=== PATIENT | male | born 1945 | race Caucasian/White ===

== ENCOUNTER → 2016-05-17 | Outpatient (CLI) | payer OTHER ==
[~2016-05-17] MED LIST: ASCA500 PO; ASPCH81X PO; BICA50TA2 PO; CALC600T9 PO; CHOL100027 PO; LSN/10125 PO; MULT-506 PO; OMEGCAP2 PO; SERT1TAB71 PO; SIMV40TA4 PO; ZNTT/150 PO
== END | disposition home or self-care (01) ==
LOC: C.LAB 06:37
PROVIDERS: ATTEND Specialist
DX: C61 Malignant neoplasm of prostate (principal)

== ENCOUNTER → 2016-11-29 | Outpatient (CLI) | payer OTHER ==
[2016-11-29 09:43] LABS: BLOOD UREA NITROGEN 19 mg/dl (7-18); BUN/CREATININE RATIO 20.4 (10-20); CALCIUM 8.9 mg/dl (8.5-10.1); CARBON DIOXIDE 28 mmol/L (21-32); CHLORIDE 110 mmol/L (98-107); CREATININE 0.95 mg/dl (0.60-1.40); GLUCOSE 93 mg/dl (70-99); POTASSIUM 3.9 mmol/L (3.5-5.1); SODIUM 143 mmol/L (136-145)
[2016-11-29 09:46] LABS: CHOLESTEROL 188 mg/dl (0-200); CHOLESTEROL/HDL RATIO 3.3; HDL CHOLESTEROL 57 mg/dl; LDL CHOLESTEROL CALCULATED 95 mg/dl; TRIGLYCERIDES 181 mg/dl (0-150); VERY LOW DENSITY LIPOPROT CALC 36 mg/dl
== END | disposition home or self-care (01) ==
LOC: C.LAB 07:00
PROVIDERS: ATTEND Family Medicine
DX: I10 Essential (primary) hypertension (principal); E78.5 Hyperlipidemia, unspecified; C61 Malignant neoplasm of prostate

== ENCOUNTER → 2016-12-19 | Outpatient (CLI) | payer OTHER ==
[2016-12-19 08:12] LABS: HEMATOCRIT 40.5 % (42-52); MEAN CORPUSCULAR HEMOGLOBIN 31.6 pg (25-34); MEAN CORPUSCULAR HGB CONC 35.6 g/dl (32-36); MEAN PLATELET VOLUME 9.7 fL (7.4-10.4); PLATELET COUNT 216 K/uL (130-400); RED BLOOD COUNT 4.55 M/uL (4.7-6.1); WHITE BLOOD COUNT 7.71 K/uL (4.8-10.8)
[2016-12-19 08:45] LABS: ALT/SGPT 21 U/L (12-78); BLOOD UREA NITROGEN 16 mg/dl (7-18); BUN/CREATININE RATIO 20.4 (10-20); CALCIUM 8.7 mg/dl (8.5-10.1); CARBON DIOXIDE 28 mmol/L (21-32); CHLORIDE 109 mmol/L (98-107); CREATININE 0.79 mg/dl (0.60-1.40); GLUCOSE 97 mg/dl (70-99); POTASSIUM 3.8 mmol/L (3.5-5.1); SODIUM 142 mmol/L (136-145)
[2016-12-19 08:50] LABS: ALKALINE PHOSPHATASE 55 U/L (45-117); AST/SGOT 12 U/L (15-37)
== END | disposition home or self-care (01) ==
LOC: C.LAB 07:16
PROVIDERS: ATTEND Internal Medicine Hematology & Oncology
DX: C61 Malignant neoplasm of prostate (principal)

== ENCOUNTER → 2016-12-20 | Outpatient (CLI) | payer OTHER ==
--- NOTE | 2016-12-20 14:01 | DIAGNOSTIC IMAGING REPORT ---
CT SCAN OF THE ABDOMEN AND PELVIS WITHOUT CONTRAST CLINICAL HISTORY: Prostate carcinoma COMPARISON STUDY: November 2008 TECHNIQUE: CT scan of the abdomen and pelvis was performed from the lung bases to the proximal femurs. Images are reviewed in the axial, sagittal, and coronal planes. IV contrast was not administered for this examination. A dose lowering technique was utilized adhering to the principles of ALARA. CT DOSE: FINDINGS: Lower chest: There is a small hiatal hernia. Liver: There is a 12 mm hypodensity within the left hepatic lobe anteriorly, likely representing a cyst. Gallbladder: Surgically absent Spleen: Normal in size and attenuation. Pancreas: Unremarkable. Adrenal glands: Unremarkable. Kidneys: No renal, ureteral, or bladder calculi are visualized. There is a 37 mm lower pole right renal cyst. This is 22 mm mid pole left renal cyst. Bowel: There are no transition zones indicate bowel obstruction. There is colonic diverticulosis. There are no acute peridiverticular inflammatory changes. There is no evidence of acute appendicitis. Peritoneum: There is a small right-sided femoral hernia containing a small portion of small bowel. No obstructive changes are evident. Vasculature: The abdominal aorta is normal in course and caliber. Adenopathy: There are mildly prominent aortocaval lymph nodes, including a 1 cm node which is at the upper limits of normal in size. Pelvic viscera: Multiple prostate radiation therapy seeds are visualized. Skeletal structures: No destructive osseous lesions are seen. IMPRESSION: 1. 1 cm aortocaval lymph node which is at the upper limits of normal in size 2. Very small right-sided femoral hernia 3. No evidence of bowel obstruction. No evidence of free air. No acute inflammatory changes Electronically signed by: Sachin Sharif M.D. 12/20/2016 1:59 PM Dictated Date/Time: 12/20/2016 1:50 PM
--- NOTE | 2016-12-20 14:14 | DIAGNOSTIC IMAGING REPORT ---
(CHEST) THORAX WITHOUT CT DOSE: 1255.34 mGy.cm HISTORY: PROSTATE CA, R/O METS TECHNIQUE: Multiaxial CT images of the chest were performed without contrast. A dose lowering technique was utilized adhering to the principles of ALARA. COMPARISON: Chest CT 05/04/2015. FINDINGS: No pleural effusions. No pneumothorax. The central airways are patent. Mild emphysema. No focal lung consolidations. No suspicious pulmonary nodules. A few linear densities at the right lung base favor subsegmental atelectasis or scarring. No suspicious lytic or blastic osseous lesions. No mediastinal or hilar lymphadenopathy. Small hiatus hernia. Tiny gastric diverticulum. The visualized spleen and adrenal glands are unremarkable. A 1.3 cm hypodense lesion within the left hepatic dome is incompletely characterize on this noncontrast study but favors a cyst. Normal caliber thoracic aorta. IMPRESSION: No evidence for metastatic disease within the chest. Electronically signed by: Nba Seth M.D. 12/20/2016 2:13 PM Dictated Date/Time: 12/20/2016 2:08 PM
--- NOTE | 2016-12-20 14:29 | DIAGNOSTIC IMAGING REPORT ---
BONE SCAN WHOLE BODY CLINICAL HISTORY: Prostate carcinoma. COMPARISON STUDY: Bone scan dated 04/04/2009, chest CT dated 12/20/2016 FINDINGS: The patient was injected with 22 mCi of technetium 99m MDP. Three-hour delayed whole body images were acquired. There is a stable focus of increased activity involving the left eighth costochondral junction. There is a second more subtle focus of increased activity involving the left fifth costosternal junction. These areas are unlikely to be on a neoplastic basis. There are foci of increased activity involving the medial joint compartment of each knee, likely on a degenerative basis. There is a stable focus of increased activity within the left shoulder likely degenerative. There are no foci of increased activity viewed as suspicious for skeletal metastasis. IMPRESSION: No scintigraphic evidence of skeletal metastasis. Electronically signed by: Sachin Sharif M.D. 12/20/2016 2:27 PM Dictated Date/Time: 12/20/2016 2:24 PM
== END | disposition home or self-care (01) ==
LOC: C.NUCL 10:42
PROVIDERS: ATTEND Internal Medicine Hematology & Oncology
DX: C61 Malignant neoplasm of prostate (principal)

== ENCOUNTER → 2017-03-14 | Outpatient (CLI) | payer OTHER | END | disposition home or self-care (01) | LOC: C.LAB 06:37 | PROVIDERS: ATTEND Internal Medicine Hematology & Oncology | DX: C61 Malignant neoplasm of prostate (principal) ==

== ENCOUNTER 2017-07-29 07:58 | Inpatient (IN) | payer OTHER ==
[~2017-07-29] VITALS: Ht 180.3 cm; Wt 92.4 kg
[~2017-07-29 07:58] MED LIST changes: +RANI150T85 PO; -ZNTT/150 PO
[2017-07-29] MEDS ORDERED: ABIR1TAB PO (08:27)
[2017-07-29] MEDS ORDERED: ZLDI (08:27)
[2017-07-29] MEDS ORDERED: SERT-234 PO (08:27)
[2017-07-29 08:44] LABS: BASO % 0.2 %; BASO ABS # 0.02 K/uL (0-0.2); EOS % 1.2 %; EOS ABS # 0.14 K/uL (0-0.5); HEMOGLOBIN 13.6 g/dL (14.0-18.0); IG# 0.04 K/uL (0.00-0.02); LYMPH % 8.7 %; LYMPH ABS # 1.03 K/uL (1.2-3.4); MEAN CELL VOLUME 89.8 fL (80-100); MEAN CORPUSCULAR HEMOGLOBIN 32.2 pg (25-34); MEAN CORPUSCULAR HGB CONC 35.8 g/dl (32-36); MEAN PLATELET VOLUME 9.9 fL (7.4-10.4); MONO % 8.1 %; MONO ABS # 0.96 K/uL (0.11-0.59); NEUT % 81.5 %; NEUT ABS # 9.59 K/uL (1.4-6.5); PLATELET COUNT 196 K/uL (130-400); RED CELL DISTRIBUTION WIDTH CV 12.9 % (11.5-14.5); RED CELL DISTRIBUTION WIDTH SD 42.1 fL (36.4-46.3); WHITE BLOOD COUNT 11.78 K/uL (4.8-10.8)
--- NOTE | 2017-07-29 09:02 | DIAGNOSTIC IMAGING REPORT ---
CHEST ONE VIEW PORTABLE CLINICAL HISTORY: Chest pain. COMPARISON STUDY: Chest CT December 20, 2016. FINDINGS: Lung volumes are normal. No pneumothorax or pleural effusion is noted. Mild left lower lung opacity is noted. There is no evidence for pulmonary edema. Underlying emphysema is present. Cardiomediastinal silhouette is stable. IMPRESSION: Linear left basilar opacity which has developed since previous exam. The configuration favors atelectasis however pneumonia could appear similar. Radiographic follow up is recommended. Electronically signed by: Bipin Berman M.D. 07/29/2017 9:00 AM Dictated Date/Time: 07/29/2017 8:59 AM
[2017-07-29 09:04] LABS: ALBUMIN 2.8 gm/dl (3.4-5.0); ALT/SGPT 15 U/L (12-78); AST/SGOT 16 U/L (15-37); BLOOD UREA NITROGEN 18 mg/dl (7-18); CALCIUM 8.6 mg/dl (8.5-10.1); CARBON DIOXIDE 23 mmol/L (21-32); CREATININE 0.84 mg/dl (0.60-1.40); GLUCOSE 116 mg/dl (70-99); LIPASE 73 U/L (73-393); POTASSIUM 2.9 mmol/L (3.5-5.1); SODIUM 138 mmol/L (136-145)
[2017-07-29 09:09] LABS: ALKALINE PHOSPHATASE 56 U/L (45-117); CKMB 2.9 ng/ml (0.5-3.6); TOTAL PROTEIN 6.9 gm/dl (6.4-8.2)
[2017-07-29] MEDS ORDERED: OPTIRAY 320 IV PRN (10:00)
--- NOTE | 2017-07-29 11:11 | DIAGNOSTIC IMAGING REPORT ---
CT ANGIOGRAM OF THE CHEST CLINICAL HISTORY: Left basilar consolidation. Elevated d-dimer. Atypical chest pain. COMPARISON STUDY: Chest x-ray dated 07/29/2017. Chest CT scans dated 12/20/2016 and 05/04/2015 TECHNIQUE: Following the IV administration of 92 cc of Optiray 320, CT angiogram of the chest was performed from the upper abdomen to the thoracic inlet utilizing the pulmonary embolus protocol. Images are reviewed in the axial, sagittal, and coronal planes. 3-D MIPS images are created and assessed. IV contrast was administered without complication. A dose lowering technique was utilized adhering to the principles of ALARA. The examination is modestly degraded by motion artifact. CT DOSE: 465.73 mGy.cm FINDINGS: Thyroid: Imaged portions of the thyroid gland are normal in size and attenuation. A subcentimeter low-attenuation nodule is noted in the right lobe. Thoracic aorta: There is atherosclerotic calcification of the thoracic aorta, which is normal in caliber and demonstrates standard 3-vessel arch anatomy. No dissection is seen. Pulmonary vasculature: The main pulmonary arteries are dilated suggesting pulmonary artery hypertension. There is a filling defect within the right lower lobe pulmonary artery. Filling defects are also seen within segmental and subsegmental branches of the right lower lobe, as well as segmental and subsegmental branches of the right middle lobe, the left lower lobe and the lingular pulmonary arteries. These are consistent with bilateral pulmonary emboli. Heart: The heart is enlarged and there is trace pericardial effusion. Lungs and pleural spaces: Moderate emphysema is noted. There are trace pleural effusions, left larger than right with associated bibasilar consolidation. The trachea and central airways are clear. Mediastinum: There is no mediastinal lymphadenopathy. Apryl: Clear. Axillae: There is no axillary lymphadenopathy. Upper abdomen: A small hiatal hernia is identified. Cholecystectomy clips are noted. A small gastric diverticulum is seen image #[id number]. Skeletal structures: The skeletal structures are osteopenic. There is an 8 mm sclerotic lesion identified in the body of T1 seen on image #[id number]. This is new from prior examinations. No additional osteolytic or blastic lesion is seen in. IMPRESSION: 1. Bilateral pulmonary emboli as detailed above. 2. Cardiomegaly and emphysema. 3. There are trace pleural effusions with bibasilar consolidation. This could represent atelectasis, an infectious/inflammatory pneumonitis, or possibly pulmonary infarcts given bilateral lower lobe pulmonary emboli. 4. There is an 8 mm sclerotic lesion identified in the body of T1. This is new from prior examinations and although pathologically indeterminant is concerning for an osteoblastic metastasis. Given the patient's gender, prostate cancer is a strong differential consideration. Correlation with serum PSA levels is recommended. 5. No additional osteoblastic lesions are identified. 6. Additional findings as above. Electronically signed by: De Caro M.D. 07/29/2017 11:10 AM Dictated Date/Time: 07/29/2017 11:00 AM
[2017-07-29 11:44] LABS: INR 1.1 (0.9-1.1); PTT PATIENT 29.4 SECONDS (21.0-31.0)
[2017-07-29] MEDS ORDERED: HEPARIN IV BOLUS 4,000 UNIT in SYRINGE 0 ML IV ONE (11:45)
[2017-07-29] MEDS ORDERED: HEPARIN SOD 5000 UNIT/0.5 ML CARP ONE (11:45)
[2017-07-29] MEDS: HEPARIN 25,000 UNIT/500ML D5W 500 ML IV SCH ×2 (11:56→18:58)
[2017-07-29] MEDS ORDERED: ZOLPIDEM TARTRATE 5 MG TAB PO PRN (12:45)
[2017-07-29] MEDS ORDERED: MoRPHine SULFATE 2 MG/ML CARP IV PRN (12:45)
[2017-07-29] MEDS ORDERED: ACETAMINOPHEN 325 MG TAB PO PRN (12:45)
[2017-07-29] MEDS ORDERED: ONDANSETRON INJ 2 MG/ML 2 ML VIAL IV PRN (12:45)
[2017-07-29] MEDS ORDERED: POLYETHYLENE (MIRALAX) 17 GM PACK PO PRN (12:45)
[2017-07-29] MEDS ORDERED: ALUMINUM/MAGNESIUM/SIMETH (MAALOX MAX) 30 ML UDC PO PRN (12:45)
[2017-07-29] MEDS ORDERED: MAGNESIUM HYDROXIDE SUSP 30 ML UDC PO PRN (12:45)
--- NOTE | 2017-07-29 12:57 | History and Physical ---
History & Physical Date & Time of Service: Jul 29, 2017 at 12:51 Chief Complaint: CHEST Primary Care Physician: No Doctor, Assigned History of Present Illness Source: patient, hospital records 72 y/o M Hx HTN, HPL, prostate CA - active. Pt presents with acute onset BL pleuritic CP - lower lateral chest. He denies SOB, although he states that he has trouble taking a deep breath. He denies fevers, n/v, dysuria. He had a viral-like illness earlier in the week which lead to him being more sedentary than usual. A CTA revealed BL lower lobe pulmonary emboli. 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 on current imaging - Brachytherapy 2006 - currently treated with Zoladex 4) GERD 5) Smoker Surgical: 1) Cholecystectomy 2) Cataracts Family History Cancer Social History Smoking Status: Current Every Day Smoker Marital Status: Occupational Status: retired Immunizations History of Influenza Vaccine: Unknown Allergies Coded Allergies: No Known Allergies (Unverified , 05/03/15) Home Medications Scheduled Abiraterone Acetate (Zytiga), 1,000 MG PO DAILY Ascorbic Acid (Vitamin C), 500 MG PO DAILY Aspirin (Aspirin Chewable), 81 MG PO DAILY Calcium Carbonate-Vitamin D (Calcium + D), 1 TAB PO DAILY Cholecalciferol (Vitamin D 1000 Unit), 1,000 INTER.UNIT PO DAILY Hctz/Lisinopril (Lisinopril/Hctz 10/12.5 Mg), 1 TAB PO DAILY Multivitamin (Multivitamin), 1 TAB PO DAILY Ettrick-3 Fatty Acids (Fish Oil), 1 CAP PO DAILY Ranitidine (Zantac), Unknown Dose PO DAILY Sertraline (Zoloft), 100 MG PO DAILY Simvastatin (Zocor), 40 MG PO QPM Miscellaneous Medications Goserelin Acetate (Zoladex) Review of Systems Constitutional: No fever, No chills, No sweats Eyes: No worsening of vision ENT: No hearing loss, No unusual epistaxis, No nasal symptoms Respiratory: + shortness of breath, + dyspnea on exertion, + dyspnea at rest, No cough, No sputum, No wheezing Cardiovascular: + chest pain (pleuritic, BL) Abdomen: No pain, No nausea, No vomiting Musculoskeletal: No joint pain Genitourinary - Male: No hematuria, No dysuria Neurologic: No memory loss, No paralysis, No weakness Psychiatric: No depression symptoms Endocrine: No fatigue Hematologic / Lymphatic: No abnormal bleeding/bruising Integumentary: No rash Allergic / Immunologic: No environmental allergies Physical Exam Vital Signs Date Time Temp Pulse Resp B/P (MAP) Pulse Ox O2 Delivery O2 Flow Rate FiO2 07/29/17 12:08 77 07/29/17 11:57 77 18 128/83 92 Room Air 07/29/17 10:36 93 Room Air 07/29/17 10:00 79 20 122/79 96 Room Air 07/29/17 08:42 86 07/29/17 08:01 36.8 105 20 117/82 93 Room Air General Appearance: WD/WN, no apparent distress Head: normocephalic Eyes: normal inspection ENT: normal ENT inspection, pharynx normal Neck: supple, no JVD Respiratory/Chest: chest non-tender, lungs clear, normal breath sounds Cardiovascular: regular rate, rhythm, no edema, no gallop Abdomen/GI: normal bowel sounds, non tender, soft Back: normal inspection, no CVA tenderness Extremities/Musculoskelatal: normal inspection, no calf tenderness, normal capillary refill Neurologic/Psych: [employer] president II-XII nml as tested, no motor/sensory deficits, alert, oriented x 3 Skin: normal color Diagnostics Laboratory Results Results Past 24 Hours Test 07/29/17 08:25 07/29/17 08:30 07/29/17 09:06 Range/Units Urine Color ORANGE Urine Appearance TURBID CLEAR Urine pH 5.0 4.5-7.5 Urine Specific [place] 1.030 1.000-1.030 Urine Protein 2+ NEG Urine Glucose (UA) NEG NEG Urine Ketones 2+ NEG Urine Occult Blood 1+ NEG Urine Nitrite POS NEG Urine Bilirubin NEG NEG Urine Urobilinogen NEG NEG Urine Leukocyte Esterase TRACE NEG Urine Hyaline Casts (Auto) 0-5 /lpf Urine RBC 10-30 0-4 /hpf Urine WBC 1-5 0-5 /hpf Urine Epithelial Cells 0-5 0-5 /lpf Urine Renal Epithelial Cells 0-5 /lpf Urine Bacteria NEG NEG Urine Granular Casts 20-30 0 /lpf Urine Pathogenic Casts 0 /lpf Urine Yeast (Auto) NONE PRSENT White Blood Count 11.78 4.8-10.8 K/uL Red Blood Count 4.23 4.7-6.1 M/uL Hemoglobin 13.6 14.0-18.0 g/dL Hematocrit 38.0 42-52 % Mean Corpuscular Volume 89.8 80-100 fL Mean Corpuscular Hemoglobin 32.2 25-34 pg Mean Corpuscular Hemoglobin Concent 35.8 32-36 g/dl Platelet Count 196 130-400 K/uL Mean Platelet Volume 9.9 7.4-10.4 fL Neutrophils (%) (Auto) 81.5 % Lymphocytes (%) (Auto) 8.7 % Monocytes (%) (Auto) 8.1 % Eosinophils (%) (Auto) 1.2 % Basophils (%) (Auto) 0.2 % Neutrophils # (Auto) 9.59 1.4-6.5 K/uL Lymphocytes # (Auto) 1.03 1.2-3.4 K/uL Monocytes # (Auto) 0.96 0.11-0.59 K/uL Eosinophils # (Auto) 0.14 0-0.5 K/uL Basophils # (Auto) 0.02 0-0.2 K/uL RDW Standard Deviation 42.1 36.4-46.3 fL RDW Coefficient of Variation 12.9 11.5-14.5 % Immature Granulocyte % (Auto) 0.3 % Immature Granulocyte # (Auto) 0.04 0.00-0.02 K/uL Prothrombin Time 11.6 9.0-12.0 SECONDS Prothromb Time International Ratio 1.1 0.9-1.1 Activated Partial Thromboplast Time 29.4 21.0-31.0 SECONDS Partial Thromboplastin Ratio 1.1 Sodium Level 138 136-145 mmol/L Potassium Level 2.9 3.5-5.1 mmol/L Chloride Level 104 98-107 mmol/L Carbon Dioxide Level 23 21-32 mmol/L Anion Gap 11.0 3-11 mmol/L Blood Urea Nitrogen 18 7-18 mg/dl Creatinine 0.84 0.60-1.40 mg/dl Est Creatinine Clear Calc Drug Dose 89.9 ml/min Estimated GFR () 100.0 Estimated GFR (Non- 86.3 BUN/Creatinine Ratio 21.4 10-20 Random Glucose 116 70-99 mg/dl Calcium Level 8.6 8.5-10.1 mg/dl Total Bilirubin 0.8 0.2-1 mg/dl Direct Bilirubin 0.2 0-0.2 mg/dl Aspartate Amino Transf (AST/SGOT) 16 15-37 U/L Alanine Aminotransferase (ALT/SGPT) 15 12-78 U/L Alkaline Phosphatase 56 45-117 U/L Total Creatine Kinase 207 39-308 U/L Creatine Kinase MB 2.9 0.5-3.6 ng/ml Creatine Kinase MB Ratio 1.4 0-3.0 Troponin I < 0.015 0-0.045 ng/ml Total Protein 6.9 6.4-8.2 gm/dl Albumin 2.8 3.4-5.0 gm/dl Lipase 73 73-393 U/L Bedside D-Dimer > 450 0-450 ng/mlFEU Bedside Troponin I < 0.030 0-0.045 ng/ml Diagnostic Radiology CTA: 1. Bilateral pulmonary emboli 2. Cardiomegaly and emphysema. 3. There are trace pleural effusions with bibasilar consolidation. This could represent atelectasis, an infectious/inflammatory pneumonitis, or possibly pulmonary infarcts given bilateral lower lobe pulmonary emboli. 4. There is an 8 mm sclerotic lesion identified in the body of T1. This is new from prior examinations and although pathologically indeterminant is concerning for an osteoblastic metastasis. Given the patient's gender, prostate cancer is a strong differential consideration. Correlation with serum PSA levels is recommended. 5. No additional osteoblastic lesions are identified. 6. Additional findings as above. EKG Sinus - subtle ant and lat depressions may indicate degree of strain Impression Assessment and Plan 72 y/o M Hx HTN, HPL, prostate CA - active. Pt presents with acute onset BL pleuritic CP - lower lateral chest. He denies SOB, although he states that he has trouble taking a deep breath. He denies fevers, n/v, dysuria. He had a viral-like illness earlier in the week which lead to him being more sedentary than usual. A CTA revealed BL lower lobe pulmonary emboli. 1) BL PE - He is stable with a high clot burden. Started on Heparin in the ER which we will continue overnight. Barring any complications, would transition to an oral agent AM. A hypercoag workup would not likely provide useful information as he has risk factors of CA, smoking and recent sedentariness. 2) Prostate CA - may have metastasis on imaging - was not aware of this - instructed to follow-up with his MD. States his PSA was recently 0. 3) HTN - Cont HCTZ/Lisin 4) HPL - cont Statin 5) Smoker - advised on cessation considering the admitting diagnosis Full code - full dose Heparin Total time for this admit including review of labs, meds, imaging, records - discussion with pt and ER attending 37 min Resuscitation Status VTE Prophylaxis Will order VTE Prophylaxis: Yes
[2017-07-29 14:16] VITALS: BP 133/84; PULSE 103; O2SAT 91; Ht 180.3 cm; Wt 92.4 kg
--- NOTE | 2017-07-29 15:53 | EMERGENCY ROOM VISIT NOTE ---
History Report prepared by Juan: Nancy Abbasi Under the Supervision of: Dr. Silvino Bryant M.D. First contact with patient: 08:21 Chief Complaint: FLANK PAIN Stated Complaint: CHEST History of Present Illness The patient is a 72 year old male who presents to the Emergency Room with complaints of worsening flank pain starting 4 days ago. The patient picked up one of his grandsons 5 days ago. The next day, he started having pain in his left flank. The pain is worsening and is now also on the right side. He is having pain with deep breaths. He has tried taking Advil to no significant relief. He has had some cough. He has been fatigued. His notes he has been sleeping 20 hours a day for the past 4 days. He was sick with the flu a couple weeks ago. His states he was briefly nauseated a couple days ago. He is having diarrhea which he attributes to his prostate cancer medication. He has a history of hypertension. He had a collapsed right lung 2 years ago after a fall. He denies any recent travel. Pt denies LOC, headache, fevers, chills, diaphoresis, visual changes, neck pain, chest pain, breathing difficulties, vomiting, abdominal pain, melena, hematochezia, urinary symptoms, numbness, weakness, lymphadenopathy, rash, or other complaints. Source of History: patient, spouse/significant other Onset: 4 days ago Position: other (bilateral flank) Quality: other (pain) Timing: worsening Modifying Factors (Worsening): breathing (deeply) Associated Symptoms: + cough, + fatigue Review of Systems See HPI for pertinent positives and negatives. A total of ten systems were reviewed and were otherwise negative. Past Medical & Surgical Medical Problems: (1) Cataract (2) Hypercholesteremia (3) Hypertension (4) Pneumothorax with hemothorax, traumatic (5) Prostate CA (6) Pulmonary emboli Surgical Problems: (1) S/P cholecystectomy Family History Cancer Social History Smoking Status: Current Every Day Smoker Marital Status: Housing Status: lives with family Occupation Status: retired Current/Historical Medications Scheduled Abiraterone Acetate (Zytiga), 1,000 MG PO DAILY Ascorbic Acid (Vitamin C), 500 MG PO DAILY Aspirin (Aspirin Chewable), 81 MG PO DAILY Calcium Carbonate-Vitamin D (Calcium + D), 1 TAB PO DAILY Cholecalciferol (Vitamin D 1000 Unit), 1,000 INTER.UNIT PO DAILY Hctz/Lisinopril (Lisinopril/Hctz 10/12.5 Mg), 1 TAB PO DAILY Multivitamin (Multivitamin), 1 TAB PO DAILY Mora-3 Fatty Acids (Fish Oil), 1 CAP PO DAILY Ranitidine (Zantac), Unknown Dose PO DAILY Sertraline (Zoloft), 100 MG PO DAILY Simvastatin (Zocor), 40 MG PO QPM Miscellaneous Medications Goserelin Acetate (Zoladex) Allergies Coded Allergies: No Known Allergies (Unverified , 05/03/15) Physical Exam Vital Signs Date Time Temp Pulse Resp B/P (MAP) Pulse Ox O2 Delivery O2 Flow Rate FiO2 07/29/17 12:08 77 07/29/17 11:57 77 18 128/83 92 Room Air 07/29/17 10:36 93 Room Air 07/29/17 10:00 79 20 122/79 96 Room Air 07/29/17 08:42 86 07/29/17 08:01 36.8 105 20 117/82 93 Room Air Physical Exam GENERAL: Awake, alert, well-appearing, in no distress HENT: Normocephalic, atraumatic. Oropharynx unremarkable. EYES: Normal conjunctiva. Sclera non-icteric. NECK: Supple. No nuchal rigidity. FROM. No masses. RESPIRATORY: Clear to auscultation. No wheezes. Rales at the bottom left base. Normal respiratory effort. CARDIAC: Normal rate. Normal rhythm. No murmurs. No rubs. Extremities warm and well perfused. Pulses equal. No JVD. GI: Soft, non-distended. No tenderness to palpation. No rebound or guarding. No masses. RECTAL: Deferred. MUSCULOSKELETAL: Atraumatic. Chest examination reveals no tenderness. The back is symmetrical on inspection without obvious abnormality. There is no CVA tenderness to palpation. No joint edema. LOWER EXTREMITIES: Calves are equal size bilaterally and non-tender. No edema. No discoloration. NEURO: Normal sensorium. No sensory or motor deficits noted. SKIN: No rash or jaundice noted. Medical Decision & Procedures ER Provider Diagnostic Interpretation: Radiology results as stated below per my review and radiologist interpretation: CHEST ONE VIEW PORTABLE CLINICAL HISTORY: Chest pain. COMPARISON STUDY: Chest CT December 20, 2016. FINDINGS: Lung volumes are normal. No pneumothorax or pleural effusion is noted. Mild left lower lung opacity is noted. There is no evidence for pulmonary edema. Underlying emphysema is present. Cardiomediastinal silhouette is stable. IMPRESSION: Linear left basilar opacity which has developed since previous exam. The configuration favors atelectasis however pneumonia could appear similar. Radiographic follow up is recommended. Electronically signed by: Bipin Berman M.D. 07/29/2017 9:00 AM Dictated Date/Time: 07/29/2017 8:[address] ANGIOGRAM OF THE CHEST CLINICAL HISTORY: Left basilar consolidation. Elevated d-dimer. Atypical chest pain. COMPARISON STUDY: Chest x-ray dated 07/29/2017. Chest CT scans dated 12/20/2016 and 05/04/2015 TECHNIQUE: Following the IV administration of 92 cc of Optiray 320, CT angiogram of the chest was performed from the upper abdomen to the thoracic inlet utilizing the pulmonary embolus protocol. Images are reviewed in the axial, sagittal, and coronal planes. 3-D MIPS images are created and assessed. IV contrast was administered without complication. A dose lowering technique was utilized adhering to the principles of ALARA. The examination is modestly degraded by motion artifact. CT DOSE: 465.73 mGy.cm FINDINGS: Thyroid: Imaged portions of the thyroid gland are normal in size and attenuation. A subcentimeter low-attenuation nodule is noted in the right lobe. Thoracic aorta: There is atherosclerotic calcification of the thoracic aorta, which is normal in caliber and demonstrates standard 3-vessel arch anatomy. No dissection is seen. Pulmonary vasculature: The main pulmonary arteries are dilated suggesting pulmonary artery hypertension. There is a filling defect within the right lower lobe pulmonary artery. Filling defects are also seen within segmental and subsegmental branches of the right lower lobe, as well as segmental and subsegmental branches of the right middle lobe, the left lower lobe and the lingular pulmonary arteries. These are consistent with bilateral pulmonary emboli. Heart: The heart is enlarged and there is trace pericardial effusion. Lungs and pleural spaces: Moderate emphysema is noted. There are trace pleural effusions, left larger than right with associated bibasilar consolidation. The trachea and central airways are clear. Mediastinum: There is no mediastinal lymphadenopathy. Apryl: Clear. Axillae: There is no axillary lymphadenopathy. Upper abdomen: A small hiatal hernia is identified. Cholecystectomy clips are noted. A small gastric diverticulum is seen image #[id number]. Skeletal structures: The skeletal structures are osteopenic. There is an 8 mm sclerotic lesion identified in the body of T1 seen on image #[id number]. This is new from prior examinations. No additional osteolytic or blastic lesion is seen in. IMPRESSION: 1. Bilateral pulmonary emboli as detailed above. 2. Cardiomegaly and emphysema. 3. There are trace pleural effusions with bibasilar consolidation. This could represent atelectasis, an infectious/inflammatory pneumonitis, or possibly pulmonary infarcts given bilateral lower lobe pulmonary emboli. 4. There is an 8 mm sclerotic lesion identified in the body of T1. This is new from prior examinations and although pathologically indeterminant is concerning for an osteoblastic metastasis. Given the patient's gender, prostate cancer is a strong differential consideration. Correlation with serum PSA levels is recommended. 5. No additional osteoblastic lesions are identified. 6. Additional findings as above. Electronically signed by: De Caro M.D. 07/29/2017 11:10 AM Dictated Date/Time: 07/29/2017 11:00 AM Laboratory Results 07/29/17 08:30 Red Blood Count 4.23, Mean Corpuscular Volume 89.8, Mean Corpuscular Hemoglobin 32.2, Mean Corpuscular Hemoglobin Concent 35.8, Mean Platelet Volume 9.9, Neutrophils (%) (Auto) 81.5, Lymphocytes (%) (Auto) 8.7, Monocytes (%) (Auto) 8.1, Eosinophils (%) (Auto) 1.2, Basophils (%) (Auto) 0.2, Neutrophils # (Auto) 9.59, Lymphocytes # (Auto) 1.03, Monocytes # (Auto) 0.96, Eosinophils # (Auto) 0.14, Basophils # (Auto) 0.02 07/29/17 08:30 Test 07/29/17 08:25 07/29/17 08:30 07/29/17 09:06 Urine Color ORANGE Urine Appearance TURBID (CLEAR) Urine pH 5.0 (4.5-7.5) Urine Specific [place] 1.030 (1.000-1.030) Urine Protein 2+ (NEG) Urine Glucose (UA) NEG (NEG) Urine Ketones 2+ (NEG) Urine Occult Blood 1+ (NEG) Urine Nitrite POS (NEG) Urine Bilirubin NEG (NEG) Urine Urobilinogen NEG (NEG) Urine Leukocyte Esterase TRACE (NEG) Urine Hyaline Casts (Auto) /lpf (0-5) Urine RBC 10-30 /hpf (0-4) Urine WBC 1-5 /hpf (0-5) Urine Epithelial Cells 0-5 /lpf (0-5) Urine Renal Epithelial Cells /lpf (0-5) Urine Bacteria NEG (NEG) Urine Granular Casts 20-30 /lpf (0) Urine Pathogenic Casts /lpf (0) Urine Yeast (Auto) (NONE PRSENT) White Blood Count 11.78 K/uL (4.8-10.8) Red Blood Count 4.23 M/uL (4.7-6.1) Hemoglobin 13.6 g/dL (14.0-18.0) Hematocrit 38.0 % (42-52) Mean Corpuscular Volume 89.8 fL (80-100) Mean Corpuscular Hemoglobin 32.2 pg (25-34) Mean Corpuscular Hemoglobin Concent 35.8 g/dl (32-36) Platelet Count 196 K/uL (130-400) Mean Platelet Volume 9.9 fL (7.4-10.4) Neutrophils (%) (Auto) 81.5 % Lymphocytes (%) (Auto) 8.7 % Monocytes (%) (Auto) 8.1 % Eosinophils (%) (Auto) 1.2 % Basophils (%) (Auto) 0.2 % Neutrophils # (Auto) 9.59 K/uL (1.4-6.5) Lymphocytes # (Auto) 1.03 K/uL (1.2-3.4) Monocytes # (Auto) 0.96 K/uL (0.11-0.59) Eosinophils # (Auto) 0.14 K/uL (0-0.5) Basophils # (Auto) 0.02 K/uL (0-0.2) RDW Standard Deviation 42.1 fL (36.4-46.3) RDW Coefficient of Variation 12.9 % (11.5-14.5) Immature Granulocyte % (Auto) 0.3 % Immature Granulocyte # (Auto) 0.04 K/uL (0.00-0.02) Prothrombin Time 11.6 SECONDS (9.0-12.0) Prothromb Time International Ratio 1.1 (0.9-1.1) Activated Partial Thromboplast Time 29.4 SECONDS (21.0-31.0) Partial Thromboplastin Ratio 1.1 Anion Gap 11.0 mmol/L (3-11) Est Creatinine Clear Calc Drug Dose 89.9 ml/min Estimated GFR () 100.0 Estimated GFR (Non- 86.3 BUN/Creatinine Ratio 21.4 (10-20) Calcium Level 8.6 mg/dl (8.5-10.1) Total Bilirubin 0.8 mg/dl (0.2-1) Direct Bilirubin 0.2 mg/dl (0-0.2) Aspartate Amino Transf (AST/SGOT) 16 U/L (15-37) Alanine Aminotransferase (ALT/SGPT) 15 U/L (12-78) Alkaline Phosphatase 56 U/L (45-117) Total Creatine Kinase 207 U/L (39-308) Creatine Kinase MB 2.9 ng/ml (0.5-3.6) Creatine Kinase MB Ratio 1.4 (0-3.0) Troponin I < 0.015 ng/ml (0-0.045) Total Protein 6.9 gm/dl (6.4-8.2) Albumin 2.8 gm/dl (3.4-5.0) Lipase 73 U/L (73-393) Bedside D-Dimer > 450 ng/mlFEU (0-450) Bedside Troponin I < 0.030 ng/ml (0-0.045) Laboratory results reviewed by me Medications Administered Medications (Trade) Dose Ordered Sig/Venus Route Start Time Stop Time Status Last Admin Dose Admin Heparin Sodium/ Dextrose 500 ml @ 20 mls/hr Q24H IV 07/29/17 11:45 08/28/17 11:44 07/29/17 11:56 20 MLS/HR Heparin Sodium (Porcine) (Heparin Sq 5000 Unit/0.5ml) 5,000 unit STK-MED ONCE .ROUTE 07/29/17 11:45 07/29/17 11:46 DC 07/29/17 11:55 4,000 UNIT ECG Per My Interpretation Indication: chest pain Rate (beats per minute): 86 Rhythm: normal sinus Findings: nonspecific-ST abn (Lateral), no ectopy Comparison ECG Date: 03-May-2015 Change: Nonspecific ST abnormality improved anteriorly. ED Course 0854: The patient was evaluated in room A4B. A complete history and physical exam was performed. 1122: Heparin Sodium/Dextrose 500 ml @ 20 mls/hr IV. 1129: Upon reexamination, the patient was resting comfortably. I discussed the test results and treatment plan with him. The patient will be evaluated for further management. 1236: I discussed the patient's case with RUBI Roman hospitalist. The patient will be evaluated for further treatment and disposition. Medical Decision Prior records/ancillary studies reviewed. Triage Nursing notes reviewed and agree them. Additional history obtained from the family. The patient's history was concerning for chest/flank pain. Differential diagnosis: Etiologies such as cardiac ischemia, aortic dissection, pulmonary embolism, pneumonia, pneumothorax, musculoskeletal, infections, pericarditis, myocarditis , esophageal rupture, gastrointestinal, as well as others were entertained. Physical examination: As above. ER treatment provided: Patient declined analgesia IV heparin On reassessment the patient felt better. Diagnostic interpretation by me: The electrocardiogram was negative for pathologic change. The labs revealed a mild leukocytosis on CBC. Mild hypokalemia present. The patient had normal cardiac markers. D-dimer elevated. Imaging studies: Chest x-ray as above CT scan as above. The patient has bilateral pulmonary emboli. He will need further management in the hospital. Consultation: A consultation was placed with the hospitalist. The case was discussed and diagnostics were reviewed. The patient was evaluated in the ER for further treatment. Medication Reconcilliation Current Medication List: was personally reviewed by me Blood Pressure Screening Patient's blood pressure: Elevated blood pressure Referred to hospitalist. Consults Time Called: 1215 Consulting Physician: RUBI Roman hospitalist Returned Call: 1236 Discussed the patient's case. The patient will be evaluated for further treatment and disposition. Impression Primary Impression: Bilateral pulmonary embolism Critical Care I have personally spent greater than 30 minutes of critical care time in the direct management of this patient. This includes bedside care, interpretation of diagnostic studies, and testing, discussion with consultants, patient, and family members, and other required patient management activities. This 30 minutes is in excess of all separately billable procedures. Scribe Attestation The scribe's documentation has been prepared under my direction and personally reviewed by me in its entirety. I confirm that the note above accurately reflects all work, treatment, procedures, and medical decision making performed by me. Departure Information Dispostion Being Evaluated By Hospitalist Referrals No Doctor, Assigned (PCP) Patient Instructions [facility]
[2017-07-29 18:17] LABS: PTT PATIENT 30.7 SECONDS (21.0-31.0)
[2017-07-29] MEDS ORDERED: HEPARIN IV BOLUS 7,000 UNIT in SYRINGE 0 ML IV ONE (18:45)
[2017-07-29 19:10] VITALS: BP 112/66; PULSE 91; TEMP 38; O2SAT 92
[2017-07-29] MEDS: SIMVASTATIN 40 MG TAB PO SCH (21:20)
[2017-07-29] MEDS: FAMOTIDINE 20 MG TAB PO SCH (21:20)
[2017-07-29 23:38] VITALS: BP 120/75; PULSE 67; TEMP 36.8; O2SAT 93
[2017-07-30 01:07] LABS: PTT PATIENT 36.2 SECONDS (21.0-31.0)
[2017-07-30] MEDS ORDERED: HEPARIN IV BOLUS 7,000 UNIT in SYRINGE 0 ML IV ONE (02:30)
[2017-07-30] MEDS: HEPARIN 25,000 UNIT/500ML D5W 500 ML IV SCH ×2 (02:40→08:22)
[2017-07-30 04:40] VITALS: BP 108/68; PULSE 64; TEMP 36.7; O2SAT 91
[2017-07-30 07:17] LABS: HEMATOCRIT 33.8 % (42-52); HEMOGLOBIN 11.8 g/dL (14.0-18.0); MEAN CELL VOLUME 90.1 fL (80-100); MEAN CORPUSCULAR HEMOGLOBIN 31.5 pg (25-34); MEAN CORPUSCULAR HGB CONC 34.9 g/dl (32-36); MEAN PLATELET VOLUME 9.9 fL (7.4-10.4); PLATELET COUNT 188 K/uL (130-400); RED CELL DISTRIBUTION WIDTH CV 12.7 % (11.5-14.5); RED CELL DISTRIBUTION WIDTH SD 42.1 fL (36.4-46.3); WHITE BLOOD COUNT 8.28 K/uL (4.8-10.8)
[2017-07-30 07:22] VITALS: BP 100/63; PULSE 61; TEMP 37.1; O2SAT 91
[2017-07-30 07:36] LABS: PTT PATIENT 55.5 SECONDS (21.0-31.0)
[2017-07-30 07:46] LABS: CALCIUM 8.2 mg/dl (8.5-10.1); CREATININE 0.8 mg/dl (0.60-1.40); POTASSIUM 2.7 mmol/L (3.5-5.1)
[2017-07-30] MEDS: CALCIUM 600MG + VIT D 400 IU TAB PO SCH (08:09)
[2017-07-30] MEDS: SERTRALINE HCL 100 MG TAB PO SCH (08:09)
[2017-07-30] MEDS: FAMOTIDINE 20 MG TAB PO SCH ×2 (08:09→19:55)
[2017-07-30] MEDS: ASPIRIN 81 MG ECTAB PO SCH (08:09)
[2017-07-30] MEDS: LISINOPRIL/HCTZ 10/12.5MG TAB PO SCH (08:09)
[2017-07-30] MEDS: OMEGA-3 (PURIFIED FISH OIL) 1 GM CAP PO SCH (08:09)
[2017-07-30] MEDS: CHOLECALCIFEROL 1000 INTER.UNIT TAB PO SCH (08:09)
[2017-07-30] MEDS: POTASSIUM CHLORIDE 20 MEQ TABCR PO SCH ×2 (09:41→19:55)
[2017-07-30] MEDS: ENOXAPARIN 100 MG/1ML SYR SQ SCH ×2 (10:20→19:55)
[2017-07-30 11:35] VITALS: BP 118/69; PULSE 77; TEMP 36.9; O2SAT 91
[2017-07-30 15:10] VITALS: BP 109/66; PULSE 66; TEMP 36.8; O2SAT 91
[2017-07-30] MEDS ORDERED: WARFARIN SOD 5 MG TAB PO SCH (16:00)
--- NOTE | 2017-07-30 17:09 | Progress Note ---
Subjective Date of Service: Jul 30, 2017. Subjective this pt is stable we discussed the options of anticoagulation and use of warfarin etc, he will need to establish care with a local pcp and his does see kayden peter Problem List Medical Problems: (1) Bilateral pulmonary embolism Status: Acute (2) Encounter for removal of sutures Status: Acute (3) Pneumothorax, right Status: Acute Review of Systems Constitutional: No fever, No chills, No weakness, No fatigue Respiratory: No cough, No shortness of breath, No dyspnea on exertion Cardiac: No chest pain, No edema, No claudication Abdomen: No pain, No nausea, No vomiting, No diarrhea Male : No dysuria, No urinary frequency, No incontinence Objective Vital Signs Date Time Temp Pulse Resp B/P (MAP) Pulse Ox O2 Delivery O2 Flow Rate FiO2 07/30/17 07:22 37.1 61 18 100/63 (75) 91 Nasal Cannula 2.0 07/30/17 04:40 36.7 64 18 108/68 (81) 91 Room Air 07/30/17 04:05 Room Air 07/30/17 00:05 Room Air 07/29/17 23:38 36.8 67 18 120/75 (90) 93 Nasal Cannula 2.0 07/29/17 20:16 Room Air 07/29/17 19:10 38.0 91 18 112/66 (81) 92 Nasal Cannula 2.0 07/29/17 16:29 Room Air 07/29/17 14:16 103 18 133/84 91 Room Air 07/29/17 13:44 88 20 109/64 91 07/29/17 12:08 77 07/29/17 11:57 77 18 128/83 92 Room Air 07/29/17 10:36 93 Room Air 07/29/17 10:00 79 20 122/79 96 Room Air 07/29/17 08:42 86 Physical Exam General Appearance: WD/WN, + mild distress Eyes: normal inspection, sclerae normal Neck: supple, no JVD Respiratory/Chest: chest non-tender, lungs clear, + rales (left base) Cardiovascular: regular rate, rhythm, no murmur Abdomen: normal bowel sounds, non tender, soft Extremities: no pedal edema, no calf tenderness Neurologic/Psychiatric: alert, oriented x 3 Laboratory Results Last 24 Hours Test 07/29/17 08:25 07/29/17 08:30 07/29/17 09:06 07/29/17 17:54 Urine Color ORANGE Urine Appearance TURBID Urine pH 5.0 Urine Specific [place] 1.030 Urine Protein 2+ Urine Glucose (UA) NEG Urine Ketones 2+ Urine Occult Blood 1+ Urine Nitrite POS Urine Bilirubin NEG Urine Urobilinogen NEG Urine Leukocyte Esterase TRACE Urine Hyaline Casts (Auto) /lpf Urine RBC 10-30 /hpf Urine WBC 1-5 /hpf Urine Epithelial Cells 0-5 /lpf Urine Renal Epithelial Cells /lpf Urine Bacteria NEG Urine Granular Casts 20-30 /lpf Urine Pathogenic Casts /lpf Urine Yeast (Auto) White Blood Count 11.78 K/uL Red Blood Count 4.23 M/uL Hemoglobin 13.6 g/dL Hematocrit 38.0 % Mean Corpuscular Volume 89.8 fL Mean Corpuscular Hemoglobin 32.2 pg Mean Corpuscular Hemoglobin Concent 35.8 g/dl Platelet Count 196 K/uL Mean Platelet Volume 9.9 fL Neutrophils (%) (Auto) 81.5 % Lymphocytes (%) (Auto) 8.7 % Monocytes (%) (Auto) 8.1 % Eosinophils (%) (Auto) 1.2 % Basophils (%) (Auto) 0.2 % Neutrophils # (Auto) 9.59 K/uL Lymphocytes # (Auto) 1.03 K/uL Monocytes # (Auto) 0.96 K/uL Eosinophils # (Auto) 0.14 K/uL Basophils # (Auto) 0.02 K/uL RDW Standard Deviation 42.1 fL RDW Coefficient of Variation 12.9 % Immature Granulocyte % (Auto) 0.3 % Immature Granulocyte # (Auto) 0.04 K/uL Prothrombin Time 11.6 SECONDS Prothromb Time International Ratio 1.1 Activated Partial Thromboplast Time 29.4 SECONDS 30.7 SECONDS Partial Thromboplastin Ratio 1.1 1.2 Sodium Level 138 mmol/L Potassium Level 2.9 mmol/L Chloride Level 104 mmol/L Carbon Dioxide Level 23 mmol/L Anion Gap 11.0 mmol/L Blood Urea Nitrogen 18 mg/dl Creatinine 0.84 mg/dl Est Creatinine Clear Calc Drug Dose 89.9 ml/min Estimated GFR () 100.0 Estimated GFR (Non- 86.3 BUN/Creatinine Ratio 21.4 Random Glucose 116 mg/dl Calcium Level 8.6 mg/dl Total Bilirubin 0.8 mg/dl Direct Bilirubin 0.2 mg/dl Aspartate Amino Transf (AST/SGOT) 16 U/L Alanine Aminotransferase (ALT/SGPT) 15 U/L Alkaline Phosphatase 56 U/L Total Creatine Kinase 207 U/L Creatine Kinase MB 2.9 ng/ml Creatine Kinase MB Ratio 1.4 Troponin I < 0.015 ng/ml Total Protein 6.9 gm/dl Albumin 2.8 gm/dl Lipase 73 U/L Bedside D-Dimer > 450 ng/mlFEU Bedside Troponin I < 0.030 ng/ml Test 07/30/17 00:42 07/30/17 06:57 Activated Partial Thromboplast Time 36.2 SECONDS 55.5 SECONDS Partial Thromboplastin Ratio 1.4 2.1 White Blood Count 8.28 K/uL Red Blood Count 3.75 M/uL Hemoglobin 11.8 g/dL Hematocrit 33.8 % Mean Corpuscular Volume 90.1 fL Mean Corpuscular Hemoglobin 31.5 pg Mean Corpuscular Hemoglobin Concent 34.9 g/dl RDW Standard Deviation 42.1 fL RDW Coefficient of Variation 12.7 % Platelet Count 188 K/uL Mean Platelet Volume 9.9 fL Sodium Level 138 mmol/L Potassium Level 2.7 mmol/L Chloride Level 103 mmol/L Carbon Dioxide Level 27 mmol/L Anion Gap 8.0 mmol/L Blood Urea Nitrogen 15 mg/dl Creatinine 0.80 mg/dl Est Creatinine Clear Calc Drug Dose 94.4 ml/min Estimated GFR () 102.0 Estimated GFR (Non- 88.0 BUN/Creatinine Ratio 18.6 Random Glucose 103 mg/dl Calcium Level 8.2 mg/dl Magnesium Level 2.0 mg/dl Assessment and Plan 72 y/o M Hx HTN, HPL, prostate CA - active. Pt presents with acute onset BL pleuritic CP - lower lateral chest. He denies SOB, although he states that he has trouble taking a deep breath. He denies fevers, n/v, dysuria. He had a viral-like illness earlier in the week which lead to him being more sedentary than usual. A CTA revealed BL lower lobe pulmonary emboli. BL PE - on Heparin, he has risk factors of CA, smoking and recent sedentariness, given his cancer will change to lovenox therapeutic dose and coumadin with inr follow at coumadin clinic Prostate CA - may have metastasis on imaging -T1 instructed to follow-up with his MD. States his PSA was recently 0. HTN - stable HCTZ/Lisin HPL - cont Statin Smoker - advised on cessation considering the admitting diagnosis Full code - full dose Heparin
[2017-07-30] MEDS: SIMVASTATIN 40 MG TAB PO SCH (19:56)
[2017-07-30] MEDS ORDERED: ENOXAPARIN 1 MG/KG SQ SCH (20:00)
[2017-07-30 20:03] VITALS: BP 111/67; PULSE 69; TEMP 36.8; O2SAT 91
[2017-07-30] MEDS ORDERED: POTASSIUM CHLORIDE 20 MEQ TABCR PO SCH (21:00)
[2017-07-31 00:16] VITALS: BP 118/63; PULSE 63; TEMP 36.8; O2SAT 91
[2017-07-31 04:23] VITALS: BP 110/68; PULSE 67; TEMP 36.7; O2SAT 90
[2017-07-31 07:12] VITALS: BP 148/89; PULSE 58; TEMP 36.8; O2SAT 93
[2017-07-31] MEDS: CALCIUM 600MG + VIT D 400 IU TAB PO SCH (08:09)
[2017-07-31] MEDS: SERTRALINE HCL 100 MG TAB PO SCH (08:09)
[2017-07-31] MEDS: OMEGA-3 (PURIFIED FISH OIL) 1 GM CAP PO SCH (08:09)
[2017-07-31] MEDS: LISINOPRIL/HCTZ 10/12.5MG TAB PO SCH (08:10)
[2017-07-31] MEDS: FAMOTIDINE 20 MG TAB PO SCH (08:10)
[2017-07-31] MEDS: ASPIRIN 81 MG ECTAB PO SCH (08:10)
[2017-07-31] MEDS: CHOLECALCIFEROL 1000 INTER.UNIT TAB PO SCH (08:10)
[2017-07-31] MEDS: POTASSIUM CHLORIDE 20 MEQ TABCR PO SCH (08:10)
[2017-07-31] MEDS: ENOXAPARIN 100 MG/1ML SYR SQ SCH (08:11)
[2017-07-31] MEDS ORDERED: CMD5 PO ×2 (08:54→11:57)
[2017-07-31] MEDS ORDERED: LVNIS100 SQ ×2 (08:54→11:57)
--- NOTE | 2017-07-31 08:55 | Discharge Instructions ---
Discharge Instructions Date of Service Jul 31, 2017. Admission Reason for Admission: Pulmonary Emboli VTE Date & Time Date of VTE Diagnosis: Jul 29, 2017 Time of VTE Diagnosis: 09:32 Discharge Goals Goal(s): Diagnostic testing, Therapeutic intervention Activity Recommendations Activity Limitations: as noted below . Instructions / Follow-Up Instructions / Follow-Up Medication Instructions: * Warfarin is a medicine prescribed to prevent blood clots * Warfarin will thin your blood and help prevent new clots * Take your medications exactly as directed * Never skip a dose. Never take a double dose. If you miss a dose, take it as soon as you remember * It is important for your doctor to monitor your prothrombin time (PT). This is a lab test * Keep your appointment for lab tests Risk of Adverse Drug Reactions and Interactions: * Warfarin increases your risk of bleeding * The food you eat and other medications you take can affect how Warfarin works in your body * Ask your doctor about daily aspirin therapy * It is very important to talk with your doctor about all of the other medicines , antibiotics, vitamins or herbal products that you are taking * All of your medication must be approved by your doctor, including new medicines, as well as medicines you have taken before you started taking Warfarin Diet: * In order for Warfarin to work properly, it is important to keep your intake of Vitamin K as consistent as possible * You should avoid any sudden change in Vitamin K intake * Report any significant changes in your diet or weight to your doctor Call your Primary Care doctor if you experience any of the following: * Swelling or Pain in your leg * Sudden, continuous pain deep in a muscle * Pain that worsens when you are active or when you stand still for a long time * Chest Pain * Sudden Shortness of Breath * Rapid or pounding heart beat * Fainting * Dizziness * Cough with blood or bloody sputum * Sweating more than normal * Bruises * Heavy or uncontrolled bleeding * Blood in your urine, stool or vomit * Black or tarry stools Caring for Your Self at Home: * Avoid sitting, standing or lying down for long periods without moving your legs and feet * When traveling by car, stop to get out and move around at least once every 3 hours * On long airplane, train or bus rides, get up and move around when possible * If you can't get up, wiggle your toes and tighten your calves to keep your blood moving Follow Up: It is important for you to keep your follow up appointments with your medical provider. Current Hospital Diet Patient's current hospital diet: Regular Diet Discharge Diet Recommended Diet: Regular Diet Pending Studies Studies pending at discharge: no Medical Emergencies . Who to Call and When: Medical Emergencies: If at any time you feel your situation is an emergency, please call 911 immediately. . Non-Emergent Contact Non-Emergency issues call your: Primary Care Provider Call Non-Emergent contact if: temperature is above 101, your pain is unusual for you . . "Provider Documentation" section prepared by Azeem Burger. . Weight Inspector Recommendations Weight Inspector Recommendations: Please have your coumadin INR checked 08/02 and as directed by Dr Driver VTE Core Measure Reason no anticoag overlap I/P: Treatment provided - N/A Reason no anticoag overlap @DC: Treatment provided - N/A
[2017-07-31 09:31] LABS: CALCIUM 8.5 mg/dl (8.5-10.1); CREATININE 0.83 mg/dl (0.60-1.40); POTASSIUM 3.7 mmol/L (3.5-5.1)
[2017-07-31 09:41] VITALS: O2SAT 91
[2017-07-31 11:26] VITALS: BP 104/68; PULSE 62; TEMP 37.1; O2SAT 91
[2017-07-31 12:08] VITALS: BP 104/68; PULSE 62; TEMP 37.1; O2SAT 91
--- NOTE | 2017-07-31 16:01 | Discharge Summary ---
Discharge Summary Date of Service Jul 31, 2017. Discharge Summary Admission Date: Jul 29, 2017 at 12:44 Discharge Date: Jul 31, 2017 Discharge Disposition: Home Principal Diagnosis: pulmonary embolism Immunizations: Have You Had Influenza Vaccine: Unknown Medication Reconciliation New Medications: Enoxaparin (Enoxaparin Sodium) 100 Mg/Ml Inj 90 MG SQ Q12@0900,2100, #10 DOSE . Warfarin Sod (Coumadin) 5 Mg Tab 5 MG PO DAILY@16, #34 TAB 5 Refills , Continued Medications: Abiraterone Acetate (Zytiga) 250 Mg Tab 1000 MG PO DAILY Ascorbic Acid (Vitamin C) 500 Mg Tab 500 MG PO DAILY Aspirin (Aspirin Chewable) 81 Mg Chew 81 MG PO DAILY, TAB Calcium Carbonate-Vitamin D (Calcium + D) 1 Tab Tab 1 TAB PO DAILY Cholecalciferol (Vitamin D 1000 Unit) 1,000 Unit Cap 1000 INTER.UNIT PO DAILY, CAP Goserelin Acetate (Zoladex) 10.8 Mg Kit Hctz/Lisinopril (Lisinopril/Hctz 10/12.5 Mg) 1 Ea Tab 1 TAB PO DAILY, TAB Multivitamin (Multivitamin) Tab 1 TAB PO DAILY, TAB [place]-3 Fatty Acids (Fish Oil) 1 Cap Cap 1 CAP PO DAILY Ranitidine (Zantac) Unknown Strength Tab Unknown Dose PO DAILY, TAB Sertraline (Zoloft) 100 Mg Tab 100 MG PO DAILY, TAB Simvastatin (Zocor) 40 Mg Tab 40 MG PO QPM, TAB Discharge Exam Review of Systems: Constitutional: No fever, No chills Respiratory: No cough, No sputum, No shortness of breath Abdomen: No pain, No nausea, No vomiting, No diarrhea, No constipation Physical Exam: General Appearance: WD/WN, no apparent distress Eyes: normal inspection, sclerae normal Neck: supple, no JVD Respiratory/Chest: chest non-tender, lungs clear, normal breath sounds Hospital Course 72 y/o M Hx HTN, HPL, prostate CA - active. Pt presents with acute onset BL pleuritic CP - lower lateral chest. He denies SOB, although he states that he has trouble taking a deep breath. He denies fevers, n/v, dysuria. He had a viral-like illness earlier in the week which lead to him being more sedentary than usual. A CTA revealed BL lower lobe pulmonary emboli. BL PE - Lovenox to coumadin, he has risk factors of CA, smoking and recent sedentariness,will follow up with Dr Driver and his oncologist dr Tay in [facility] Prostate CA - may have metastasis on imaging -T1 instructed to follow-up with his MD. States his PSA was recently 0. HTN - stable HCTZ/Lisin HPL - cont Statin Smoker - advised on cessation considering the admitting diagnosis [facility] nursing to assure coumadin monitoring Total Time Spent: Greater than 30 minutes This includes examination of the patient, discharge planning, medication reconciliation, and communication with other providers. Discharge Instructions Please refer to the electronic Patient Visit Report (Discharge Instructions) for additional information.
== END 2017-07-31 12:30 | disposition home or self-care (01) | DRG 176 ==
LOC: C.EDB 08:00 → C.MED 12:44 → ENRESERV 13:01
PROVIDERS: ADMIT Internal Medicine; ATTEND Internal Medicine
DX: I26.99 Other pulmonary embolism without acute cor pulmonale (principal); C79.9 Secondary malignant neoplasm of unspecified site; C61 Malignant neoplasm of prostate; I10 Essential (primary) hypertension; E78.5 Hyperlipidemia, unspecified; F17.200 Nicotine dependence, unspecified, uncomplicated; Z79.82 Long term (current) use of aspirin; Z79.899 Other long term (current) drug therapy; Z90.49 Acquired absence of other specified parts of digestive tract; Z98.49 Cataract extraction status, unspecified eye; Z80.9 Family history of malignant neoplasm, unspecified